=== PATIENT | male | born 1955 | race Caucasian/White ===

== ENCOUNTER 2018-02-04 23:22 | Observation (INO) | payer MEDICAID ==
[2018-02-04] MEDS ORDERED: NS 1,000 ML IV ONE (23:32)
[2018-02-04] MEDS ORDERED: ASPIRIN 81 MG CHEWABLE TAB PO ONE (23:32)
--- NOTE | 2018-02-04 23:33 | EDPHY ---
H & P Stated Complaint: was working out then started to have chest and back tightness Time Seen by Provider: 02/04/18 23:32 HPI/ROS: HPI CHIEF COMPLAINT: Chest pain, back pain, right jaw all and restoration pain HISTORY OF PRESENT ILLNESS: This patient is 62-year-old male, is otherwise healthy denies having any significant medical history does state that he has a cardiac arrhythmia that is benign he describes as premature beats, he saw Dr. Femi Harman at 1 point years ago for this. He does not take any daily medications. He presents emergency room with chest discomfort and back pain. He states around 630 this evening he did an hour and 20 min work out on his elliptical. It was pretty intense workout he did not have any discomfort during the workout however about 45 min to an hour later he developed some chest discomfort describes as achy sensation in the center of his chest goes directly to his back. Additionally reports he had some right jaw pain and right temporal pain associated with this. No shortness of breath. No headache. No visual disturbance. No vomiting. Denies diaphoresis. He decided come the emergency room. States since arriving his discomfort has dissipated. He has never had this happen to him before. Patient took full-dose aspirin prior to arrival. Past Medical History: Cardiac arrhythmia Past Surgical History: Denies surgical history Social History: Denies drugs alcohol tobacco Family History: Denies family history of cardiovascular disease. ROS REVIEW OF SYSTEMS: A comprehensive 10 point review of systems is otherwise negative aside from elements mentioned in the history of present illness. Exam Constitutional appears well slightly anxious nontoxic triage nursing summary reviewed, vital signs reviewed, awake/alert. Hypertensive. Eyes normal conjunctivae and sclera, EOMI, PERRLA. HENT normal inspection, atraumatic, moist mucus membranes, no epistaxis, neck supple/ no meningismus, no raccoon eyes. Respiratory clear to auscultation bilaterally, normal breath sounds, no respiratory distress, no wheezing. Cardiovascular rate normal, regular rhythm, no murmur, no edema, distal pulses normal. Gastrointestinal soft, non-tender, no rebound, no guarding, normal bowel sounds, no distension, no pulsatile mass. Genitourinary no CVA tenderness. Musculoskeletal no midline vertebral tenderness, full range of motion, no calf swelling, no tenderness of extremities, no meningismus, good pulses, neurovascularly intact. Skin pink, warm, & dry, no rash, skin atraumatic. Neurologic awake, alert and oriented x 3, AAOx3, moves all 4 extremities equally, motor intact, sensory intact, CN II-XII intact, normal cerebellar, normal vision, normal speech. Psychiatric normal mood/affect. Heme/Lymph/Immune no lymphadenopathy. 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 Re-evaluation: EKG interpretation by me on record in [employer] system. Impression time of EKG 2332: Sinus rhythm rate of [address] elevation or ST depression no significant T-wave abnormalities. Otherwise no signs of cardiac arrhythmia except for the PVCs. ED x-ray chest one-view: Negative for acute cardiopulmonary disease. HEART Score for Major Cardiac Events from [email or web address] on 02/05/2018 All calculations should be rechecked by clinician prior to use RESULT SUMMARY: 3 points Low Score (0-3 points) Risk of MACE of 0.9-1.7%. INPUTS: History > 2 = Highly suspicious EKG > 0 = Normal Age > 1 = 45-64 Risk factors > 0 = No known risk factors Initial troponin > 0 = normal limit 1241AM: Spoke with Dr. Lemus who agrees to admit the patient. Reason for admission Chest Pain. EKG reviewed shows PVCs but no significant ischemia change. Troponin negative. D-dimer negative. Due the patient's back pain intrascapular he from the chest, right jaw pain interpret plan I did proceed with a CT angio of the chest to make sure he does not have an aortic dissection. CT angiogram of the chest shows no evidence of aortic dissection or PE. Unremarkable CT angiogram please see full dictation report from Dr. Alberto Source: Patient - Personal History Current Tetanus/Diphtheria Vaccine: Yes Current Tetanus Diphtheria and Acellular Pertussis (TDAP): Yes - Medical/Surgical History Hx Asthma: Yes Hx Chronic Respiratory Disease: No Hx Diabetes: No Hx Cardiac Disease: No Hx Renal Disease: No Hx Cirrhosis: No Hx Alcoholism: No Hx HIV/AIDS: No Hx Splenectomy or Spleen Trauma: No Other PMH: lower back pain , begine arrthy. - Social History Smoking Status: Never smoked Constitutional: Initial Vital Signs Temperature (C) 36.3 C 02/04/18 23:22 Heart Rate 50 L 02/04/18 23:22 Respiratory Rate 18 02/04/18 23:22 Blood Pressure 168/100 H 02/04/18 23:22 O2 Sat (%) 98 02/04/18 23:22 O2 Delivery Mode Room Air Allergies/Adverse Reactions: oxycodone HCl [From Percocet] Allergy (Verified 02/05/18 03:14) nauseous Home Medications: Medication Instructions Recorded Herbals/Supplements -Info Only 1 ea PO DAILY 02/05/18 Medical Decision Making - Diagnostics Imaging Results: Imaging Impressions Chest/Thorax CTA 02/05/18 00:07 Impression: 1. No aortic dissection or aneurysm. 2. No evidence of thrombopulmonary embolic disease. 3. Mild bronchitis and minimal bronchiolitis. No interstitial edema or pneumonia. The study was performed as an emergency on-call case and discussed by telephone with Dr. Moralez at 12:45 a.m. The final interpretation is concordant with the original communication. - Data Points Laboratory Results: Laboratory Results 02/04/18 23:38 02/04/18 23:38 Medications Given: Discontinued Medications Aspirin (Aspirin) 324 mg PO EDNOW ONE Stop: 02/04/18 23:33 Last Admin: 02/05/18 07:09 Dose: Not Given Sodium Chloride (Ns) 1,000 mls @ 0 mls/hr IV EDNOW ONE; Wide Open PRN Reason: Protocol Stop: 02/04/18 23:33 Last Admin: 02/05/18 00:00 Dose: 1,000 mls Morphine Sulfate (Morphine) 4 mg IVP EDNOW ONE Stop: 02/05/18 00:13 Last Admin: 02/05/18 00:21 Dose: Not Given Morphine Sulfate (Morphine) 4 mg IVP EDNOW ONE Stop: 02/05/18 00:21 Last Admin: 02/05/18 00:21 Dose: 4 mg Nitroglycerin (Nitrostat) 0.4 mg SL EDNOW ONE Stop: 02/04/18 23:44 Last Admin: 02/04/18 23:53 Dose: 0.4 mg Departure - Departure Disposition: [facility] Acute Clinical Impression: Chest pain Qualifiers: Chest pain type: unspecified Qualified Code(s): R07.9 - Chest pain, unspecified Condition: Fair
--- NOTE | 2018-02-04 23:34 | CPEKG ---
Heart Rate: 69 RR Interval: 870 P-R Interval: 212 QRSD Interval: 86 QT Interval: 420 QTC Interval: 450 P [place]: 37 QRS [place]: 59 T Wave [place]: 62 EKG Severity - ABNORMAL ECG - EKG Impression: SINUS RHYTHM EKG Impression: MULTIPLE VENTRICULAR PREMATURE COMPLEXES Electronically Signed By: Cheko Rivera 05-Feb-2018 16:45:18
[2018-02-04] MEDS ORDERED: NITROGLYCERIN 0.4 MG BTL SL ONE (23:43)
[2018-02-04 23:47] LABS: PLATELET COUNT 207 10^3/uL (150-400)
[2018-02-04 23:56] LABS: INR 1.09 (0.83-1.16); PROTIME(PATIENT) 14.3 SEC (12.0-15.0)
[2018-02-05 00:02] LABS: CREATINE KINASE 73 IU/L (0-224)
[2018-02-05] MEDS ORDERED: IOPAMIDOL (ISOVUE 370) 100 ML BTL IV ONE (00:10)
[2018-02-05] MEDS ORDERED: ALBUTEROL 3 ML DEYVIAL IH PRN (02:24)
[2018-02-05] MEDS ORDERED: diphenhydrAMINE 25 MG CAP PO PRN (02:24)
[2018-02-05] MEDS ORDERED: LORazepam 0.5 MG TAB PO PRN (02:24)
[2018-02-05] MEDS ORDERED: ONDANSETRON 4 MG/2 ML VIAL IVP PRN (02:24)
[2018-02-05] MEDS ORDERED: NITROGLYCERIN 0.4 MG BTL SL PRN (02:27)
[2018-02-05] MEDS ORDERED: ACETAMINOPHEN 325 MG TAB PO PRN (03:17)
--- NOTE | 2018-02-05 04:43 | PDGENHP ---
History and Physical - Chief Complaint chest pain radiating to right neck/jaw - History of Present Illness Source - patient provides history and appears reliable. Patient's at bedside supplements some details. Case was discussed with ED provider and EMR reviewed. HPI - pleasant 62-year-old gentleman with exercise-induced asthma, PVCs, remote history SVT who presents emergency department today with complaints of several hours of substernal chest pain with radiation to his right neck and jaw. Patient is he quite athletic and home exercises on a regular basis. He was on the elliptical machine for approximately 2 hr at a rigorous pace at 6:30 p.m.. and did not experience any chest pain until 2 hr after his exercise. Patient started to develop some lower sternal chest pressure and tightness. He has experienced heartburn previously but states this was much different. He had no associated shortness of breath during this episode but did note that after his exercise activity on the elliptical he did have wheezing shortness of breath resolved after he took Advair. No associated nausea/vomiting, diaphoresis, lightheadedness. The chest pain subsequently radiated up on his chest and to his right neck and jaw. Patient states that he felt like in his neck he was experiencing increasing PVCs and uncontrollable rate. He has not had any exacerbations of SVT in several years. His last stress test was 8 or 9 years ago. Patient did see Dr. Harman out patient 1 year ago at [facility] and was monitored but no episodes of SVT or identified by his report. He was also experiencing some right temporal pain and development headache shortly thereafter. Patient states that he does have a history of right-sided headaches but this also seemed to be a little bit variable from his normally experienced once. He denies any associated changes in vision or ocular pain. After 2 hr without relief of his symptoms despite taking an aspirin patient presented to the emergency department as his symptoms seemed quite abnormal for him. Patient rated his pain 2 to 4/10 but persistent. Patient's who is at bedside also notes that patient appeared to began to shake and have a little bit of a tremor. Patient states that due to the pain and discomfort he thinks he may have started to hyperventilate and developed a small tremble but this did resolve before arrival to the ED. History Information - Allergies/Home Medication List Allergies/Adverse Reactions: oxycodone HCl [From Percocet] Allergy (Verified 02/05/18 03:14) nauseous Home Medications: No Medications [NO HOME MEDICATIONS] 1 ea [facility] [place] 07/15/11 [Last Taken Unknown] I have personally reviewed and updated: family history, medical history, social history, surgical history - Past Medical History Additional medical history: Exercise induced asthma, history PVCs, history of SVT greater than 8 years ago - Family History Additional family history: No family history of coronary artery disease. Grandmother with history CVA otherwise all other family members healthy. - Social History Smoking Status: Never smoked Alcohol Use: None Drug Use: None Additional social history: Patient is and lives with his . Cor status-full Review of Systems Review of Systems: ROS: 10pt was reviewed & negative except for what was stated in HPI & below Constitutional: Reports: no symptoms EENMT: Reports: no symptoms Cardiac: Reports: chest pain, palpitations, other (See HPI). Denies: lightheadedness Respiratory: Reports: shortness of breath (Post exercise resolved after Advair) , wheezing (Post exercise resolved after Advair) Gastrointestinal: Reports: no symptoms Genitourinary: Reports: no symptoms Muscolosketal: Reports: muscle pain (Occasional cramping in his lower extremities with increased exercise none currently.). Denies: joint pain Skin: Reports: no symptoms Neurological: Reports: tremors (During patient's initial episode of chest pain as noted in HPI). Denies: anxiety, numbness, tingling, weakness Hematologic/Lymphatic: Reports: no symptoms Physical Exam Physical Exam: Selected Entries 02/04/18 02/05/18 23:22 00:45 Blood Pressure Automatic Method Heart Rate 50 L 62 Respiratory 18 18 Rate O2 Sat (%) 98 94 Temperature (C) 36.3 C 36.7 C Blood Pressure 168/100 H 143/83 H Mean Arterial 122 H 103 H Pressure (MAP) O2 Delivery Room Air Room Air Mode Temperature Oral Source Cardiac Rhythm Normal Sinus Rhythm PVC Temp Pulse Resp BP Pulse Ox 36.4 C 67 15 150/98 H 99 02/05/18 02:52 02/05/18 02:52 02/05/18 02:52 02/05/18 02:52 02/05/18 03:24 O2 (L/minute) 2 Constitutional: no apparent distress, not in pain, other (NAD. Pleasant adult gentleman who appears slightly younger than stated age is resting comfortably on the gurney. is at bedside. Both in good spirits.) Eyes: PERRL, anicteric sclera, EOMI, No scleral injection Ears, Nose, Mouth, Throat: moist mucous membranes, no oral mucosal ulcers, No poor dentition Cardiovascular: regular rate and rhythym, pulses symmetric bilaterally, bradycardia (Regular, low normal rate in the 60s.), No systolic murmur, No edema Peripheral Pulses: 2+: dorsalis-pedis (R), dorsalis-pedis (L) Respiratory: no respiratory distress, clear to auscultation, No expiratory wheeze, No respiratory distress Gastrointestinal: normoactive bowel sounds, soft, non-tender abdomen, no palpable masses, No distension Genitourinary: no bladder tenderness, No ware in urethra Skin: warm, normal color, no rashes or abrasions Musculoskeletal: full muscle strength, no muscle tenderness, other (Patient moves all extremities and sits up independently. Strength grossly) Neurologic: AAOx3, sensation intact bilaterally, CN II-XII Intact, other ( Grossly nonfocal exam.), No facial droop Psychiatric: interacting appropriately, not encephalopathic, thought process linear, other (Thought process content and questions are appropriate.) Lab Data & Imaging Review 02/04/18 23:38 02/04/18 23:38 WBC 9.79 10^3/uL (3.80-9.50) H 02/04/18 23:38 RBC 5.16 10^6/uL (4.40-6.38) 02/04/18 23:38 Hgb 16.2 g/dL (13.7-17.5) 02/04/18 23:38 Hct 44.4 % (40.0-51.0) 02/04/18 23:38 MCV 86.0 fL (81.5-99.8) 02/04/18 23:38 MCH 31.4 pg (27.9-34.1) 02/04/18 23:38 MCHC 36.5 g/dL (32.4-36.7) 02/04/18 23:38 RDW 11.9 % (11.5-15.2) 02/04/18 23:38 Plt Count 207 10^3/uL (150-400) 02/04/18 23:38 MPV 10.6 fL (8.7-11.7) 02/04/18 23:38 Neut % (Auto) 58.7 % (39.3-74.2) 02/04/18 23:38 Lymph % (Auto) 25.4 % (15.0-45.0) 02/04/18 23:38 [place] % (Auto) 8.0 % (4.5-13.0) 02/04/18 23:38 Eos % (Auto) 6.9 % (0.6-7.6) 02/04/18 23:38 Baso % (Auto) 0.8 % (0.3-1.7) 02/04/18 23: Nucleat RBC Rel Count 0.0 % (0.0-0.2) 02/04/18 23: Absolute Neuts (auto) 5.74 10^3/uL (1.70-6.50) 02/04/18 23:38 Absolute Lymphs (auto) 2.49 10^3/uL (1.00-3.00) 02/04/18 23:38 Absolute Monos (auto) 0.78 10^3/uL (0.30-0.80) 02/04/18 23:38 Absolute Eos (auto) 0.68 10^3/uL (0.03-0.40) H 02/04/18 23:38 Absolute Basos (auto) 0.08 10^3/uL (0.02-0.10) 02/04/18: Absolute Nucleated RBC 0.00 10^3/uL (0-0.01) 02/04/18 23:38 Immature Gran % 0.2 % (0.0-1.1) 02/04/18 23: Immature Gran # 0.02 10^3/uL (0.00-0.10) 02/04/18 23:38 PT 14.3 SEC (12.0-15.0) 02/04/18 23:38 INR 1.09 (0.83-1.16) 02/04/18 23:38 APTT 27.7 SEC (23.0-38.0) 02/04/18 23:38 D-Dimer 0.36 ug/mLFEU (0.00-0.50) 02/04/18 23:38 Sodium 145 mEq/L (135-145) 02/04/18 23:38 Potassium 3.5 mEq/L (3.5-5.2) 02/04/18 23:38 Chloride 105 mEq/L (97-110) 02/04/18 23:38 Carbon Dioxide 27 mEq/l (22-31) 02/04/18 23:38 Anion Gap 13 mEq/L (8-16) 02/04/18 23:38 BUN 21 mg/dL (7-23) 02/04/18 23:38 Creatinine 0.9 mg/dL (0.7-1.3) 02/04/18 23:38 Estimated GFR > 60 02/04/18 23:38 Glucose 79 mg/dL (70-100) 02/04/18 23:38 Calcium 9.7 mg/dL (8.5-10.4) 02/04/18 23:38 Magnesium 1.8 mg/dL (1.6-2.3) 02/04/18 23:38 Total Bilirubin 1.3 mg/dL (0.1-1.4) 02/04/18 23:38 Conjugated Bilirubin 0.3 mg/dL (0.0-0.5) 02/04/18 23:38 Unconjugated Bilirubin 1.0 mg/dL (0.0-1.1) 02/04/18 23:38 AST 26 IU/L (17-59) 02/04/18 23:38 ALT 34 IU/L (21-72) 02/04/18 23:38 Alkaline Phosphatase 69 IU/L (38-126) 02/04/18 23:38 Creatine Kinase 73 IU/L (0-224) 02/04/18 23:38 CK-MB (CK-2) Fraction 1.71 ng/mL (0.00-3.19) 02/04/18 23:38 Troponin I 0.013 ng/mL (0.000-0.034) 02/04/18 23:38 NT-Pro-B Natriuret Pep 131 pg/mL (0-125) H 02/04/18 23:38 Total Protein 7.8 g/dL (6.3-8.2) 02/04/18 23:38 Albumin 4.5 g/dL (3.5-5.0) 02/04/18 23:38 Lipase 83 IU/L (23-300) 02/04/18 23:38 Imaging Review: Portable Chest at 2348 hours History: Chest Pain. Comparison: PA and lateral chest November 03, 2009. Findings: Diffuse interstitial prominence is increased. There is no focal consolidation, pneumothorax, or pleural effusion. Heart size is normal. The bones are unremarkable. Impression: Increased interstitial prominence, possibly related to mild fluid overload or less likely bronchitis/airways disease. prelim CHEST ANGIO 1. Normal aorta. No dissection. 2. No PE. 3. Bronchitis d/w Dr. Ojeda 12:45 am Chest X-Ray results: no infiltrate, other (Bronchitis) EKG Interpretation: Positive for: normal sinsus rhythm EKG additional interpertation: NSR 60s. QTC 450. Multiple PVCs. No acute ST changes. Assessment & Plan Assessment: Pleasant 62-year-old gentleman with history of PVCs, SVT, asthma otherwise healthy presents emergency department today with new onset of substernal chest pain with radiation to his right neck and voodoo. Chest pain (Acute) - differential diagnosis including angina versus asthma exacerbation versus pancreatitis or biliary colic, with negative CT angio for PE year aortic dissection. Serial troponins. Patient is quite active gentleman he does note that he did develop a slight asthma exacerbation post workout which he did take Advair for he does not utilize any albuterol which may be have some benefit. Patient states he has not had a stress test in a number of years but did have a recent cardiac evaluation at [facility] which I do not have access to at this time. Will trend his troponins repeat EKG. Will check also a lipase. CTA was negative for PE or dissection. Patient does have bronchitis noted on his chest x-ray but has no active wheezing currently. Will follow laboratory results and consider moving forward with stress versus discussion with Cardiology. PVCs - monitor on telemetry. monitor electrolytes and replace if needed. Palpitations - patient reports history of PVCs in more remotely history of SVT. He is not currently on any medications for rate control. He reports he had a cardiac evaluation last year but this did not include a stress test. Patient was seen at [facility], at this time I do not have access to the outpatient records. Patient will be monitored on continuous telemetry overnight. May need to consider Holter monitoring or other evaluation as patient notes that previous monitoring attempts were non revealing. Asthma without exacerbation. Patient reports using Advair p.r.n. And not in albuterol inhaler or nebulizer. Patient reports that he frequently has exacerbations with exertion or activity. Headache - patient without any focal deficits. Headache was relieved with morphine. FEN - NPO after midnight. Sips of water okay with pills. Electrolyte monitoring and replacement if needed. Cor status-full PPX-SCDs. Reassess for prophylactic anticoagulation if patient should stay additional day. Disposition-patient admitted observation at this time on PCU for close cardiac monitoring.
[2018-02-05 08:04] VITALS: RESP 22
--- NOTE | 2018-02-05 10:56 | CPEKG ---
Heart Rate: 60 RR Interval: 1000 P-R Interval: 228 QRSD Interval: 86 QT Interval: 432 QTC Interval: 432 P [place]: 48 QRS [place]: 49 T Wave [place]: 52 EKG Severity - ABNORMAL ECG - EKG Impression: SINUS RHYTHM EKG Impression: FIRST DEGREE AV BLOCK Electronically Signed By: Milton Nicole 05-Feb-2018 11:09:45
[2018-02-05 11:32] VITALS: BP 147/96; PULSE 55; TEMP 97.8; O2SAT 94
--- NOTE | 2018-02-05 11:32 | ASMTCMCOM ---
CM Note CM Note Notes: 02/05/2018 Case Management Note Discussed pt during multidisciplinary rounds this morning. Pt admitted after episode of chest pain. There are no case management d/c needs identified d/t pt age, marital status and activity levels prior to admission. There are no PT or OT evals ordered at this time. Case Management d/c poc: independent with follow up as directed. Case Management available if needs change. Date Signed: 02/05/2018 11:32 AM Electronically Signed By:Wilma Alcantara RN
--- NOTE | 2018-02-05 12:19 | ECHO ---
[email or web address] [address] [address] Main: [phone] Fax: [email or web address] Echocardiogram Name: KATE FIELDS MR#: [id number] Study Date: 02/05/2018 Study Time: 10:56 AM Date of : 1955 Age: 62 year(s) Height: 177.8 cm (70 in.) Weight: 81.19 kg (179 lb.) BSA: 1.99 m2 Gender: Male Examination: Echo Indication: Chest pain/r/o WMA Image Quality: Contrast: Requested by: Deja Naranjo BP: 149 mmHg/98 mmHg Heart Rate: Rhythm: Indication: Chest pain/r/o WMA Procedure Staff Ob Scrub Tech: Sangeetha Menard RDCS Reading Physician: Riccardo Shane MD Requesting Provider: Conclusions: Normal size left ventricle. Normal global systolic LV function. The ejection fraction is estimated to be 65-70 %. No regional wall motion abnormality. Grade 1 diastolic dysfunction (abnormal relaxation). The pulmonary artery pressure is normal. No pericardial effusion. Measurements: Chambers Valvular Assessment AV/MV Valvular Assessment TV/PV Normal Normal Normal Name Value Range Name Value Range Name Value Range Ao [place] (MM): 3.5 cm (2.2 cm-3.7 AV meanP mmHg ( - ) TR Vmax: 2.31 mm/s ( - ) cm) MV E Vmax: 0.68 m/s ( - ) TR PGmax: 21 mmHg ( - ) IVSd (2D): 0.5 cm (0.6 cm-1.1 MV A Vmax: 0.57 m/s ( - ) syst. PAP: 26 mmHg ( - ) cm) MV E/A: 1.19 ( - ) LVDd (2D): 5.6 cm (4.2 cm-5.9 cm) LVDs (2D): 3.6 cm (2.1 cm-4 cm) LVPWd (2D): 1.0 cm (0.6 cm-1 cm) LVEF (MOD4): 67 % (>=55 %) EF Range: 65-70 % Continued Measurements: Chambers Valvular Assessment AV/MV Valvular Assessment TV/PV Name Value Name Value Name Value LADs: 3.9 cm MV E' Septal: 0.08 m/s CVP (est.): 5 mmHg Patient: KATE FIELDS Study Date: 02/05/2018 Page 1 of 2 10:56 AM LADs Lon.0 cm MV E/E' Septal: 8.60 LA Area: 23.8 cm2 MV E/E' Lateral: 8.60 Findings: Left Ventricle: Normal size left ventricle. No LV hypertrophy. Normal global systolic LV function. The ejection fraction is estimated to be 65-70 %. No regional wall motion abnormality. Grade 1 diastolic dysfunction (abnormal relaxation). Right Ventricle: Normal size right ventricle. Normal RV function. Left Atrium: The left atrium is normal in size. Right Atrium: The right atrium is normal in size. Mitral Valve: There is moderate prolapse of the posterior leaflet of the mitral valve. Mild to moderate mitral regurgitation. Aortic Valve: The aortic valve is normal in appearance and function. The aortic valve is tri-leaflet. Trivial aortic valve regurgitation. Tricuspid Valve: The tricuspid valve is normal in appearance and function. Trivial tricuspid valve regurgitation. The pulmonary artery pressure is normal. Pulmonic Valve: The pulmonic valve is normal in appearance and function. Aorta: The aorta is normal. Pericardium: No pericardial effusion. (No Signature Object) Patient: KATE FIELDS Study Date: 02/05/2018 Page 2 of 2 10:56 AM [id number]
--- NOTE | 2018-02-05 15:39 | GCON ---
[f rep st] CONSULTATION CARDIOLOGY CONSULTATION. DATE OF CONSULTATION: 02/05/2018 INDICATION FOR CONSULTATION: Chest pressure. HISTORY OF PRESENT ILLNESS: The patient is a pleasant 62-year-old gentleman with a known history of mitral valve prolapse, PVCs, paroxysmal supraventricular tachycardia and occasional ocular migraine headaches who presented to [facility] yesterday evening with complaints of new onset of acute substernal chest pain as well as chest pressure. He states he was in his usual state of health yesterday. He had exercised on an elliptical dolphin trainer for an hour and 20 minutes without symptoms. He exercises regularly without symptoms. He states that approximately 2 hours after completing his exercise, while watching the news on television, he had an acute onset of 6/10 epigastric chest pressure that radiated to his back. After the onset of this epigastric chest pressure, he developed a chest pain with palpitations that he described as a "pulsating pain" that radiated to his right neck and jaw. He also complained of some mild respirophasic chest discomfort but denied any shortness of breath, nausea, vomiting, or diaphoresis. He denies any exacerbating or alleviating symptoms. He states these symptoms persisted for 1 hour, prompting his presentation to [facility] for further evaluation. He has no previous history of coronary artery disease, hypertension, hyperlipidemia, or diabetes. He has no family history of premature coronary artery disease. He is a lifelong nonsmoker. He does not drink significant quantities of alcohol. He is . He lives with his . REVIEW OF SYSTEMS: Negative for shortness of breath, dyspnea, PND, orthopnea, or lower extremity edema. No complaints of dizziness, lightheadedness, near syncope, or syncope. No complaints of PND, orthopnea, or lower extremity edema. No complaints of fevers, chills, sweats. No complaints of myalgias or arthralgias. No recent viral illness. No complaints of abdominal pain or flank pain. Recent sick contacts include his whom he states is recently recovering from an upper respiratory infection. He does describe symptoms of feeling as if he was developing bronchitis like symptoms. PAST MEDICAL HISTORY: 1. Mitral valve prolapse. 2. History of PVCs noted on workup approximately 10 years ago at [facility]. 3. History of paroxysmal supraventricular tachycardia. 4. Occasional ocular migraines. PAST SURGICAL HISTORY: None. MEDICATIONS ON ADMISSION: None. He occasionally uses Unisom to sleep and Advil for aches and pains. ALLERGIES: He is allergic to oxycodone. SOCIAL HISTORY: He is . He is a lifelong nonsmoker. He exercises regularly. FAMILY HISTORY: Negative for premature coronary artery disease. PHYSICAL EXAMINATION: VITAL SIGNS: Blood pressure is 147/96, heart rate of 55 , in sinus rhythm, respiratory rate of 22, oxygen saturation 94% on room air, temperature 36.6. GENERAL: He is awake, alert, oriented, appropriate, in no acute distress. NECK: There is no evidence of JVP or carotid bruits. LUNGS: Clear to auscultation bilaterally. CARDIAC: S1, S2. Regular rate and rhythm. He has a 1/6 systolic murmur audible at the apex. There is no evidence of opening snap or click. ABDOMEN: Soft, nontender, nondistended. There is no pulsatile mass or abdominal bruit. EXTREMITIES: There is no evidence of cyanosis, clubbing or edema. Posterior tibial and dorsalis pedis pulses are 2+ bilaterally. LABORATORY DATA: White blood cell count 9.79, hemoglobin 16.2, hematocrit 44.4 , platelets 207. Sodium 145, potassium 3.5, chloride 105, bicarb 27, BUN 21, creatinine 0.9, glucose 78, magnesium 1.8. BNP 131, AST 26, ALT 34, lipase 83. Troponins have trended from 0.013-0.025 and down to less than 0.012. ECGs demonstrate normal sinus rhythm with normal intervals and normal axis. No evidence of ischemia or infarction. Initial EKG demonstrated 2 isolated PVCs. Most recent ECG demonstrated sinus rhythm without PVCs. Telemetry demonstrates sinus rhythm with PVCs with brief compensatory pause. Chest x-ray noted increased interstitial prominence, possibly related to mild fluid overload or possible bronchitis, airways disease. CTA of the chest demonstrated no evidence of pulmonary embolism. There was no evidence of aortic dissection or aneurysm. Findings were consistent with mild bronchitis and minimal bronchiolitis with no interstitial edema or evidence of pneumonia. Complete 2D echocardiogram demonstrated normal left ventricular size and function. There was mild posterior prolapse and mild mitral regurgitation with normal left atrial dimensions and normal pulmonary artery pressure. LVEF demonstrated 60%-65% with no wall motion abnormalities. No evidence of pericardial effusion. IMPRESSION: 1. Atypical chest discomfort. 2. Respirophasic chest discomfort and findings consistent with mild bronchitis and minimal bronchiolitis with recent sick contact in his with upper respiratory infection. 3. Known history of mild mitral valve prolapse. 4. History of premature ventricular contractions. 5. History of paroxysmal supraventricular tachycardia. SUMMARY: The patient is a pleasant 62-year-old gentleman with presentation of atypical chest discomfort. Workup has been unremarkable including multiple serial ECGs without evidence of ischemia or infarction. Serial troponins x3 have been normal. Normal echocardiogram with no evidence of wall motion abnormality. CTA was negative for pulmonary embolism or aortic dissection. Findings are consistent with mild bronchitis. I do not think he requires further hospitalization for further cardiac risk stratification at this time. In the setting of a history of paroxysmal SVT with symptoms that he states occur frequently with the onset of exercise, I have recommended he be seen by Dr. Vishnu Helms of electrophysiology for consideration of EP study and ablation. I have also recommended outpatient 2 week heart monitor to assess frequency of PVCs. PLAN: 1. The patient is stable for discharge home. 2. Will make arrangements for outpatient 2 week heart monitor. 3. Will make arrangements for followup with me in the office to consider further cardiac risk stratification as an outpatient once he recovers from his episode of bronchitis. 4. Will arrange for EP consultation with Dr. Vishnu Helms for consideration of EP study and SVT ablation. 60 minutes spent coordinating care. /[id number]/MODL MTDD
--- NOTE | 2018-02-05 16:15 | ASDISCHSUM ---
Discharge Information Plan Status:Home with No Needs Medically Cleared to Leave:02/05/2018 Discharge Date:02/05/2018 04:05 PM CM D/C Disposition:Home, Routine, Self-Care ADT D/C Disposition:Home, Routine, Self-Care Projected Discharge Date:02/05/2018 04:05 PM Transportation at D/C:Family Discharge Delay Reason: Follow-Up Date:02/05/2018 04:05 PM Discharge Slot: Final Diagnosis: Placement Information Patient Contact Information Contact Name:IRA Relationship: Address:[address] [place] [address] City:[facility] Phone: [facility] [address]/Zip Code:[place] [address] Email: Financial Information Financial Class:Medicaid Primary Plan 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 Pt admitted after episode of chest pain. There are no case management d/c needs identified d/t pt age, marital status and activity levels prior to admission. There are no PT or OT evals ordered at this time. Case Management d/c poc: independent with follow up as directed. Case Management available if needs change. Date Signed: 02/05/2018 11:32 AM Electronically Signed By:Wilma Alcantara RN Intervention Information
--- NOTE | 2018-02-05 22:41 | GDS ---
[f rep st] DISCHARGE SUMMARY ALL DIAGNOSES: 1. Noncardiac chest pain. 2. Premature ventricular contractions. 3. History of supraventricular tachycardia. HOSPITAL COURSE: A 62-year-old man who is very active at baseline. Admitted with chest pain. Cardi ac evaluation including Cardiology consult has been unremarkable. His echocardiogram was okay. ECG was negative for ischemia; it did show PVCs. CT angiogram showed bronchitis, but no other acute find ings. I suspect that bronchitis is the etiology of his pain. He will be discharged with no medicati on changes for this. ASSESSMENT AND PLAN: For his history of supraventricular tachycardia, as well as premature ventricul ar contractions, he will follow up with Dr. Shane as an outpatient and receive either a Holter monitor or an event monitor. Would consider a referral to Dr. Helms for possible ablation. This was explained both the patient, as well as his . They are comfortable with this plan. /[id number]/MODL
== END 2018-02-05 16:05 | disposition home or self-care (01) ==
LOC: F2W 02-05 02:35
PROVIDERS: ADMIT Family Medicine; ATTEND Family Medicine
DX: R07.89 Other chest pain (principal); I49.3 Ventricular premature depolarization; Z86.79 Personal history of other diseases of the circulatory system
CPT/HCPCS: 71045; 71275; 93005; 93306; G0378; 96374; J2270; Q9967

== ENCOUNTER 2018-05-19 12:42 | Emergency (ER) | payer MEDICAID ==
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
[2018-05-19 14:25] VITALS: BP 145/89
== END 2018-05-19 14:24 | disposition home or self-care (01) ==
DX: S81.812A Laceration without foreign body, left lower leg, initial encounter (principal); L03.116 Cellulitis of left lower limb; V18.4XXA Pedal cycle driver injured in noncollision transport accident in traffic accident, initial encounter; Y92.89 Other specified places as the place of occurrence of the external cause; Y99.8 Other external cause status; Y93.55 Activity, bike riding